=== PATIENT | male | born 1985 | race African-American/Black ===

== ENCOUNTER → 2016-03-24 | Outpatient (CLI) | payer MEDICAID, OTHER, SELFPAY ==
--- NOTE | 2016-03-24 09:34 | REP ---
CT study of the chest without IV contrast: History: Distal sternum mass. Comparison CT study of the chest is from December 01, 2006 at [facility]. Findings: There is a levoconvex rotoscoliotic curvature in the upper thoracic spine. Associated with this, is a rib asymmetry. The left anterior rib cage is a little more anterior in position than the right. There is a slight obliquity to the body of the sternum as a result of this rib asymmetry. There is no evidence of sternal or manubrial deformity, bony destructive lesion or parasternal soft tissue mass. The presternal or retrosternal soft tissues are unremarkable. No bony destructive lesion is seen. The lung ellison are clear. The morphology of the chest wall is unchanged from the 2006 prior study. There is a tiny zone of pleural fibrosis in the major fissure on the right which is visible in retrospect on 2006 study and unchanged. There are two tiny 3 mm noncalcified pulmonary nodules in the left lower lobe which are also visible in retrospect. No new or significant pulmonary nodule is appreciated. No hilar or mediastinal mass or adenopathy is seen. There is a small, 1.3 cm cyst in the right lobe of the liver. No adrenal lesion is seen. Impression: No sternal mass or parasternal mass seen. Thoracic rotoscoliosis and associated rib asymmetry produce some obliquity to the sternum. Findings are unchanged from December 01, 2006. Signed by Curt Brandt MD 03/24/2016 12:30 P
== END ==
LOC: M RAD 08:49
PROVIDERS: ATTEND Nurse Practitioner Family
DX: D16.7 Benign neoplasm of ribs, sternum and clavicle (principal)

== ENCOUNTER 2016-04-30 20:48 | Emergency (ER) | payer MEDICAID, SELFPAY ==
[~2016-04-30] VITALS: Ht 180.3 cm; Wt 86.2 kg
[2016-04-30 21:08] VITALS: BP 158/70
[2016-04-30] MEDS ORDERED: MULT1CHW39 PO (21:12)
== END 2016-04-30 22:36 | disposition left against medical advice (07) ==
LOC: M ED 22:05
DX: M25.512 Pain in left shoulder (principal); Z53.29 Procedure and treatment not carried out because of patient's decision for other reasons

== ENCOUNTER → 2016-05-07 | Outpatient (REF) | payer MEDICAID ==
[~2016-05-07] MED LIST: MULT1CHW39 PO
== END ==
LOC: M LAB REF 12:39
PROVIDERS: ATTEND Physician Assistant
DX: R50.9 Fever, unspecified (principal)

== ENCOUNTER → 2016-07-27 | Outpatient (CLI) | payer OTHER ==
--- NOTE | 2016-07-27 10:47 | REP ---
Chest two views HISTORY: Cough Comparison: 12/20/2015 The lungs are clear. The heart is normal in size. The pulmonary vasculature is normal in appearance. The bony structure is intact. There is scoliosis of the upper and mid thoracic spine convex to the left and lower thoracic spine convex to the right . IMPRESSION: No acute disease. Signed by Wilian Lawrence MD 07/27/2016 10:39 A
== END ==
LOC: M WUC 10:15
PROVIDERS: ATTEND Physician Assistant
DX: R05 Cough (principal)

== ENCOUNTER 2017-03-20 07:58 | Emergency (ER) | payer OTHER, SELFPAY | END 2017-03-20 08:31 | disposition home or self-care (01) | LOC: M ED 07:58 | DX: J06.9 Acute upper respiratory infection, unspecified (principal); B34.9 Viral infection, unspecified | CPT/HCPCS: 99282 ==

== ENCOUNTER → 2017-11-26 | Outpatient (REF) | payer OTHER ==
[2017-11-26 18:30] LABS: BASO % 0.5 % (0.0-1.0); EOS # 0.1 10^3/uL (0.0-0.50); EOS % 1.2 % (0.0-3.0); HEMATOCRIT 45.5 % (42.0-52.0); HEMOGLOBIN 13.3 g/dl (13.5-17.5); IMMATURE GRANULOCYTE % 0.2 % (0-3.0); LYMPH # 1.6 10^3/uL (1.5-4.5); MEAN CORPUSCULAR HEMOGLOBIN 21.3 pg (27.0-33.0); MEAN CORPUSCULAR HGB CONC 29.2 g/dl (32.0-36.5); MEAN CORPUSCULAR VOLUME 72.9 fl (80.0-96.0); MONO # 0.4 10^3/uL (0.0-0.8); MONO % 10.8 % (0.0-5.0); NEUTROPHILS # 1.9 10^3/uL (1.8-7.7); NEUTROPHILS % 47.3 % (36.0-66.0); PLATELET COUNT, AUTOMATED 255 10^3/uL (150-450); RED BLOOD COUNT 6.24 10^6/uL (4.30-6.10); RED CELL DISTRIBUTION WIDTH 15.1 % (11.5-14.5); WHITE BLOOD COUNT 4.1 10^3/uL (4.0-10.0)
[2017-11-26 19:14] LABS: ALKALINE PHOSPHATASE 66 U/L (45-117); ALT/SGPT 24 U/L (12-78); ANION GAP 5 MEQ/L (8-16); AST/SGOT 14 U/L (7-37); BILIRUBIN,TOTAL 0.3 MG/DL (0.2-1.0); BLOOD UREA NITROGEN 16 MG/DL (7-18); CALCIUM LEVEL 8.8 MG/DL (8.5-10.1); CARBON DIOXIDE LEVEL 32 MEQ/L (21-32); CHLORIDE LEVEL 105 MEQ/L (98-107); CHOLESTEROL LEVEL 189 MG/DL (<200); CHOLESTEROL RISK RATIO 4.395 (<5); CREATININE FOR GFR 1.11 MG/DL (0.70-1.30); GLOMERULAR FILTRATION RATE > 60.0 (>60); GLUCOSE, FASTING 89 MG/DL (70-100); HDL CHOLESTEROL 43 MG/DL (>40); LDL CHOLESTEROL 131 MG/DL (<100); NON-HDL-C 146 MG/DL; POTASSIUM SERUM 4.4 MEQ/L (3.5-5.1); SODIUM LEVEL 142 MEQ/L (136-145); THYROID STIMULATING HORMONE 0.605 uIU/ML (0.358-3.740); TRIGLYCERIDES LEVEL 74 MG/DL (<150)
== END ==
LOC: M LAB REF 17:27
DX: F43.29 Adjustment disorder with other symptoms (principal); Z13.220 Encounter for screening for lipoid disorders

== ENCOUNTER → 2018-05-14 | Outpatient (REF) | payer OTHER ==
[2018-05-14 12:16] LABS: INFLUENZA A AMPLIFICATION NEGATIVE (NEGATIVE); INFLUENZA B AMPLIFICATION NEGATIVE (NEGATIVE)
== END ==
LOC: M LAB REF 11:24
PROVIDERS: ATTEND Nurse Practitioner Family
DX: J11.1 Influenza due to unidentified influenza virus with other respiratory manifestations (principal)

== ENCOUNTER 2019-05-21 10:43 | Emergency (ER) | payer OTHER, SELFPAY ==
[~2019-05-21] VITALS: Ht 180.3 cm; Wt 94.2 kg
[~2019-05-21 10:43] MED LIST changes: -MULT1CHW39 PO; +MULT200T7 PO
[2019-05-21 12:20] LABS: BASO % 0.4 % (0.0-1.0); EOS % 0.6 % (0.0-3.0); HEMATOCRIT 46.8 % (42.0-52.0); HEMOGLOBIN 13.8 g/dl (13.5-17.5); LYMPH # 1.8 10^3/uL (1.5-5.0); LYMPH % 37.1 % (24.0-44.0); MEAN CORPUSCULAR HEMOGLOBIN 21.4 pg (27.0-33.0); MEAN CORPUSCULAR HGB CONC 29.5 g/dl (32.0-36.5); MEAN CORPUSCULAR VOLUME 72.6 fl (80.0-96.0); MONO # 0.4 10^3/uL (0.0-0.8); MONO % 8.6 % (0.0-5.0); NEUTROPHILS # 2.5 10^3/uL (1.5-8.5); NEUTROPHILS % 53.1 % (36.0-66.0); PLATELET COUNT, AUTOMATED 257 10^3/uL (150-450); RED BLOOD COUNT 6.45 10^6/uL (4.30-6.10); WHITE BLOOD COUNT 4.7 10^3/uL (4.0-10.0)
[2019-05-21 12:32] LABS: BLOOD UREA NITROGEN 13 MG/DL (7-18); CALCIUM LEVEL 7.6 MG/DL (8.5-10.1); CARBON DIOXIDE LEVEL 29 MEQ/L (21-32); CHLORIDE LEVEL 111 MEQ/L (98-107); CREATININE FOR GFR 0.79 MG/DL (0.70-1.30); GLOMERULAR FILTRATION RATE > 60.0 (>60); GLUCOSE, FASTING 80 MG/DL (70-100); POTASSIUM SERUM 3.5 MEQ/L (3.5-5.1); SODIUM LEVEL 143 MEQ/L (136-145)
--- NOTE | 2019-05-21 13:11 | REP ---
Clinical: Cough . Comparison: 07/27/2016 . Findings: The mediastinum and cardiac silhouette are stable and within normal limits for portable technique. The lung ellison are clear without acute consolidation, effusion, or pneumothorax. Skeletal structures are intact. Impression: No acute cardiopulmonary process appreciated. Electronically Signed by Michael Menezes MD 05/21/2019 01:01 P
[2019-05-21] MEDS ORDERED: AZIT-12 PO (14:17)
[2019-05-21 14:33] VITALS: BP 116/78
== END 2019-05-21 14:38 | disposition home or self-care (01) ==
LOC: M ED 10:43
DX: J01.00 Acute maxillary sinusitis, unspecified (principal); J30.2 Other seasonal allergic rhinitis; Z88.0 Allergy status to penicillin; Z91.89 Other specified personal risk factors, not elsewhere classified

== ENCOUNTER 2019-10-19 08:34 | Emergency (ER) | payer SELFPAY ==
[~2019-10-19] VITALS: Ht 180.3 cm; Wt 92.6 kg
[~2019-10-19 08:34] MED LIST changes: +AZIT-12 PO
[2019-10-19 11:14] VITALS: BP 117/67
[2019-10-19] MEDS ORDERED: FLON1SPR NARES (11:16)
== END 2019-10-19 11:30 | disposition home or self-care (01) ==
LOC: M ED 08:34
DX: J01.90 Acute sinusitis, unspecified (principal); J30.2 Other seasonal allergic rhinitis; Z88.0 Allergy status to penicillin; Z91.89 Other specified personal risk factors, not elsewhere classified